=== PATIENT | female | born 1995 | race African-American/Black ===

== ENCOUNTER 2025-02-17 05:01 | Emergency (ER) | payer MEDICAID, OTHER ==
[~2025-02-17] VITALS: Ht 170.2 cm; Wt 114.0 kg
[2025-02-17 05:09] VITALS: O2SAT 98
[2025-02-17] MEDS ORDERED: IBUP-1455 MT (05:31)
[2025-02-17] MEDS ORDERED: AMOX1TAB16 MT (05:31)
[2025-02-17] MEDS: KETOROLAC 30MG/ML VIAL IM ONE (05:45)
[2025-02-17] MEDS: DEXAMETHASONE 4MG/ML 1ML VIAL IM SCH (05:47)
[2025-02-17 05:52] VITALS: BP 139/76; PULSE 79; RESP 14; O2SAT 100
== END 2025-02-17 05:54 | disposition home or self-care (01) ==
LOC: ER 05:01
DX: J35.1 Hypertrophy of tonsils (principal); Z98.890 Other specified postprocedural states
CPT/HCPCS: 99284; 81025; 87430; 96372; J1885; J1100